=== PATIENT | female | born 1995 | race Two or more races ===

== ENCOUNTER 2020-11-09 08:57 | Emergency (ER) | payer OTHER ==
[~2020-11-09] VITALS: Ht 172.7 cm; Wt 63.5 kg
[2020-11-09 09:14] VITALS: BP 127/90
--- NOTE | 2020-11-09 09:23 | NUR ---
PT REC'D TO ER C/O UTI FOR 2WEEKS . WAS ON CIPRO FOR 1 WEEK . OAIN IS BACK AWAITING EVALUATION BY ER PROVIDER.
[2020-11-09] MEDS ORDERED: CEFTRIAXONE 1 G VIAL IM ONE (09:30)
[2020-11-09 09:40] LABS: BILIRUBIN,URINE SMALL (NEGATIVE); BLOOD, URINE Negative Ery/uL (NEGATIVE); COLOR,URINE DARK YELLOW (YELLOW); LEUKOCYTE ESTERASE ,URINE Negative (NEGATIVE); NITRITE, URINE Negative (NEGATIVE); PH,URINE 5.5 (5.0-8.0); PROTEIN,URINE 30 mg/dl (NEGATIVE); UGLUCOSE Negative (NEGATIVE); UROBILINOGEN,URINE 0.2 EU/dL (0.2)
[2020-11-09] MEDS ORDERED: CEFTRIAXONE 1 G VIAL ONE (09:41)
[2020-11-09] MEDS ORDERED: LIDOCAINE 0.5% HCL 50 ML VIAL ONE (09:42)
[2020-11-09] MEDS ORDERED: LIDOCAINE 1% INJ 50 ML MDV IJ ONE (09:43)
[2020-11-09 09:58] LABS: BACTERIA,URINE Moderate /HPF (None Seen); RBC,URINE 0-2 /HPF (0-2); SQUAMOUS EPITHELIAL CELL,UR Moderate /HPF (None Seen); WBC,URINE 0-3 /HPF (0-3)
== END 2020-11-09 10:27 | disposition home or self-care (01) ==
LOC: ER 09:07
DX: N39.0 Urinary tract infection, site not specified (principal)
CPT/HCPCS: 81001; 84703; 87086; 96372; 99283; J0696; J3490